=== PATIENT | male | born 1990 ===

== ENCOUNTER 2019-05-28 19:30 | Observation (INO) ==
[2019-05-28] MEDS ORDERED: traZODone 50 MG TABLET PO PRN (19:39)
[2019-05-28] MEDS ORDERED: Acetaminophen 325 MG TABLET PO PRN (19:39)
[2019-05-28] MEDS ORDERED: hydrOXYzine pamoate 25 MG CAPSULE PO PRN (19:39)
[2019-05-28] MEDS ORDERED: Haloperidol Lactate 5 MG/ML VIAL IM PRN (19:39)
[2019-05-28] MEDS ORDERED: MOM Conc 10 ML UD.LIQ PO PRN (19:39)
[2019-05-28] MEDS ORDERED: *HR* LORazepam 2 MG/ML VIAL IM PRN (19:39)
[2019-05-28] MEDS ORDERED: *HR* LORazepam 1 MG TABLET PO PRN (19:39)
[2019-05-28] MEDS ORDERED: Nicotine 2 MG GUM BC PRN (19:39)
[2019-05-28] MEDS ORDERED: Mag Hydrox/Al Hydrox/Simeth 30 ML UDC PO PRN (19:39)
[2019-05-29 08:29] VITALS: BP 127/85
--- NOTE | 2019-05-29 09:11 | Discharge Summary ---
Date of Encounter: 05/29/19 Time of Encounter: 08:15 History of Present Illness Chief complaint: I had a fight with my fiance Admitted From: Direct Admit History of Present Illness: Mr. Loya is a 29 year old male who was transferred from [facility]. He went there due to not wanting to punch himself which she often does when he is feeling angry. He said he had a fight with his fiancee and his fiancee and 1-year-old went to their mother's house for a few hours which upset him. He said he had an impulse to punch his arms which he has done in the past when he was upset but he did not want to do this. He instead went to get help. He was previously on Cymbalta which was helpful for these impulses but he has not been able to afford it recently as he has no insurance. He said he did not have any suicidal thoughts, ideations, or plans. He had no homicidal ideations. When he gets upset he hears whispers but this stops as soon as he calms down. He cannot make out anything that these whispers might be saying. He denied manic symptoms such as elevated irritable mood, grandiosity, decreased need for sleep, excessive talking. He denied psychotic symptoms with the exception of as stated above. He has no current auditory or visual hallucinations. He is future oriented toward getting back to his family. He denies access to firearms. Past Med Surg Social Fam HX - Past Medical History Medical history: no medical history - Past Psychiatric History Psychiatric history: Reports: depression. Denies: prior suicide attempt, pre vious psychiatric hospitalization Past psychiatric history details: He reports no prior suicide attempts. No previous inpatient psychiatric hospitalizations. No prior counseling or psychiatric care. Cymbalta was prescribed by his primary care physician and he liked it when he was on it but could not afford it has been off it for about a month. He has no prior suicide attempts. Family psychiatric history: No Family History of Suicide: None - Past Surgical History Surgical History: no surgical history - Social History Smoking Status: Never smoker Smokeless Tobacco Status: Yes Alcohol use: none Drug use: none Occupational status: employed Current living situation: Home - Independent Activity Level: Independent ambulation Recent Out of Country Travel Within the Last 8 Weeks: No Exposure or Possible Exposure to Illness During Travel: No Additional social history: He lives with his fiancee and their 8, 7, and 1-year-old children. He is employed. Medications - Discharge Medications Prescriptions: Sertraline [Zoloft] 50 mg PO DAILY #15 tablet Sertraline [Zoloft] 50 mg PO DAILY #15 tablet 05/29/19 [Rx] Allergy/AdvReac Type Severity Reaction Status Date / Time Penicillins Allergy Severe Hives Verified 05/28/19 19:38 Review of Systems Constitutional: Denies: fever Eyes: Denies: eye pain Ears, Nose, Throat: Denies: ear pain Cardiovascular: Denies: chest pain Respiratory: Denies: cough Gastrointestinal: Denies: hematemisis Genitourinary male: Denies: urgency Musculoskeletal: Denies: back pain Integumentary: Denies: rash Neurological: Denies: headache Psychiatric: Reports: depression. Denies: abnormal sleep pattern, suicidal ideation, change in appetite, homicidal ideation, auditory hallucinations, visual hallucinations Endocrine: Denies: fatigue Hematologic/Lymphatic: Denies: easy bleeding Allergic/Immunologic: Denies: facial swelling Exam - HEENT Head exam IM: Present: atraumatic Eye exam IM: Present: EOMI ENT exam IM: Present: mucous membranes moist - Neurological Neurological exam: Present: CN II-XII intact - Respiratory Respiratory exam IM: Absent: respiratory distress - GI/Abdominal GI/Abdominal exam IM: Present: no peritoneal signs - Extremities Extremities exam IM: Present: full ROM - Skin Skin exam IM: Absent: cyanosis - Constitutional Vitals: Temp Pulse Resp BP Pulse Ox 97.7 F 61 18 127/85 98 05/29/19 08:28 05/29/19 08:28 05/29/19 08:28 05/29/19 08:28 05/29/19 08:28 General appearance: age & developmentally appropriate, well-groomed, well- nourished - Musculoskeletal Gait: normal Station: relaxed Strength & Tone: normal for patient - Psychiatric Patient Orientation: Yes Person, Yes Time, Yes Place Level of alertness: Alert Behavior: calm, cooperative Psychomotor activity: Normal Eye Contact: Maintains Eye Contact Mood Description: Euthymic/stable Patient description of mood: Fine Affect description: congruent with mood, full range Speech Volume: Normal Speech pattern: normal rate, normal rhythm, normal tone, fluent, spontaneous Language & Vocabulary: consistent with education Thought Process: Linear, Goal Oriented Thought Content: No Suicidal ideation, No Homicidal ideation, No Overt delusions Perceptual Disturbances: No Auditory hallucinations, No Visual hallucinations Attention Span Ability: Capable of Focused Attention Memory Description: Grossly Intact Patient Reliability: Reliable Historian Fund of knowledge: Yes abstraction ability, Yes average, Yes aware of current events Intelligence Estimate: Average Judgment: Good Insight: Full Diagnosis - Discharge Diagnosis (1) Depression Status: Acute Qualifiers: Depression Type: major depressive disorder Major depression recurrence: recurrent Active/Remission status: currently active Major depression episode severity: moderate Qualified Code(s): F33.1 - Major depressive disorder, recurrent, moderate Assessment and Plan - Patient/Caregiver Discharge Instructions Activity: resume usual activities as tolerated, return to work Diet: regular diet Additional Instructions: Continue current medications. Follow up with outpatient mental health. Encourage continued therapy in a group or individual setting. The patient was discharged to home. - Follow up Plan Functional capacity at discharge: independent ambulation Overall status at discharge: Stable Disposition: Home, Self-Care Provider Date of admission: 05/28/19 19:30 Consults: 05/28/19 20:36 Consult to Pastoral Services [CONS] Routine Comment: Discharging clinician: Nette Patel [facility] Course Hospital course: Mr. Loya is a 29 year old male who was admitted for depression and thoughts of punching himself in the context of a fight with his fiancee. He previously been on Cymbalta but this was too expensive. He was open to Zoloft so this was started and he was given a 25 mg dose. Patient was educated of diagnosis and the risk-benefit side effects of this alternative treatment options and was monitored for responsiveness and side effects. Mood anxiety sleep and appetite interest were good as was future orientation. Self-harm thoughts subsided, thinking cleared, psychosis resolved, and mood stabilized. The patient was educated primarily by verbal means about their diagnosis and manifestations in their life. The option for treatment including group and individual therapy programming was offered to the patient in addition to the use of medications with all their potential risks, benefits, and side effects as well as the risks of not taking medication and non-adhereance were discussed with the patient at length. The patient was given the opportunity to ask questions and was noted to participate in the treatment in the planning process. The patient felt ready and eager to be discharged from the inpatient psychiatric unit to continue on with treatment as an outpatient. The patient agreed that is they were safe for this disposition. The patient was considered to be able to participate in informed consent and decision making with respect to medical, legal, and financial issues of the time of discharge. At the time of discharge the patient adamantly denied any concerns for lethality including suicidal or homicidal thoughts ideations or plans and was future oriented toward ongoing mental health care, medical follow-up and sobriety. Time spent discussing smoking cessation with patient: 3 to 10 minutes Does patient wish to continue nicotine replacement upon disc: No (na) - Time Spent with Patient Total time spent providing and/or coordinating discharge services: 45 Greater than 30 minutes Specific discharge activities: Interval history reviewed. Available labs reviewed . Psychotherapy provided. Patient had an opportunity to ask questions and address concerns. Patient was in agreement with the treatment plan. The risks benefits and side effects of medications were discussed with the patient, including alternatives and treatment. The patient was educated on the abstaining from any alcohol or illicit substances, following up with all scheduled appointments, and taking all medications as prescribed. Procedures - Procedures Procedures: Medication Management, Crisis Stabilization, Supportive Therapy, Group Therapy, Psychoeducational Therapy Quality - Multiple Antipsychotics Patient discharged on 2 or more antipsychotic medications: No
== END 2019-05-29 12:34 | disposition home or self-care (01) ==
LOC: 1ANU 19:30 → INTOOBSV 19:30
PROVIDERS: ADMIT Psychiatry & Neurology Psychiatry; ATTEND Psychiatry & Neurology Psychiatry